=== PATIENT | male | born 1935 | race Caucasian/White ===

== ENCOUNTER 2016-09-20 17:39 | Emergency (ER) | payer BC ==
--- NOTE | 2016-09-20 18:35 | Emergency Department Record ---
History of Present Illness - General Chief complaint: Rash Stated complaint: RASH/ALLERGIC REACTION Time Seen by Provider: 09/20/16 18:13 Source: Patient Mode of Arrival: Ambulatory Limitations: No limitations - History of Present Illness Initial comments: The patient is here due to a pruritic rash for the last 2 weeks. He was in the [facility] about 10 days ago and was started on oral Prednisone and also did see his PCP yesterday and given more Prednisone. His PCP feels it was due to an allergy from his HTN medicine Clonidine which he started 2 months ago. Now due to the itching being no better he decided to come to the ER. He denies any CP, SOB, MATEUSZ or SOSA. The patient did stop the Clonodine and did have Hydralazine started. MD complaint: Rash Onset/Timin -: Week(s) Hx Tetanus Toxoid Vaccination: Yes Year of Tetanus Vaccination: unknown Location: Generalized Severity: Moderate Improves with: None Worsens with: None Context: None Associated symptoms: Itching Treatments Prior to Arrival: Benadryl, Corticosteroid, OTC topical medication - Related Data Home Medications Medication Instructions Recorded Confirmed Last Taken Carbamazepine 100 mg PO BID 02/17/14 09/20/16 09/20/16 Levothyroxine Sodium [Levoxyl] 112 mcg PO DAILY 02/17/14 09/20/16 09/20/16 Memantine HCl [Namenda] 10 mg PO DAILY 02/17/14 09/20/16 09/20/16 Pravastatin Sodium [Pravachol] 40 mg PO QHS 02/17/14 09/20/16 09/20/16 Nifedipine [Nifedipine ER] 90 mg PO QHS 09/11/14 09/20/16 09/20/16 Hydralazine HCl [Apresoline] 10 mg PO BID 09/20/16 09/20/16 09/20/16 Zolpidem Tartrate [Zolpidem 5 mg PO QHS PRN 09/20/16 09/20/16 09/19/16 Tartrate] Previous Rx's Medication Instructions Recorded Hydroxyzine HCl [Atarax] 25 mg PO TID #21 tablet 09/20/16 Allergies Allergy/AdvReac Type Severity Reaction Status Date / Time latex [LATEX] Allergy Unknown RASH Verified 09/20/16 17:45 Penicillins [PENICILLINS] Allergy Unknown HIVES Verified 09/20/16 17:45 adhesive Allergy HIVES Verified 09/20/16 17:45 gemfibrozil [From LOPID] AdvReac Unknown VOMITING Verified 09/20/16 17:45 hydrocodone bitartrate AdvReac Unknown VOMITING Verified 09/20/16 17:45 [From VICODIN] Travel Screening - Travel/Exposure Within Last 30 Days Have you traveled within the last 30 days?: No - Travel/Exposure Within Last Year Have you traveled outside the [place] in the last year?: No - Additonal Travel Details Have you been exposed to anyone with a communicable illness?: No - Travel Symptoms Symptom Screening: None Review of Systems Constitutional: Denies: Chills, Fever Eyes: Denies: Eye discharge ENT: Denies: Congestion Respiratory: Denies: Cough, Dyspnea Past Medical History - SOCIAL HISTORY Smoking Status: Former smoker Alcohol Use: None Drug Use: None - RESPIRATORY Hx Respiratory Disorders: Yes Hx Bronchitis: Yes Hx Pneumonia: Yes Hx Sleep Apnea: Yes Hx of CPAP: No (can't tolerate) - CARDIOVASCULAR Hx Cardio Disorders: Yes Hx Abnormal EKG: Yes Hx Chest Pain: Yes Hx Hypertension: Yes Comment:: Heart murmur - NEURO Hx Neuro Disorders: Yes Hx Dementia: Yes Hx Neuropathy: Yes (legs) Hx TIA: Yes - GI Hx GI Disorders: Yes Hx Abdominal Pain: Yes (epigastric pain) Hx Reflux: Yes Hx Ulcer: Yes - Hx Genitourinary Disorders: No - ENDOCRINE Hx Endocrine Disorders: Yes Hx Diabetes: No Hx Thyroid Disease: Yes (low) - MUSCULOSKELETAL Hx Musculoskeletal Disorders: Yes Hx Arthritis: Yes Hx Gout: No - PSYCH Hx Psych Problems: Yes Hx Anxiety: Yes Hx Depression: Yes Comment:: "memory problems" - HEMATOLOGY/ONCOLOGY Hx Hematology/Oncology Disorders: No Comment:: Catholic Family Medical History Any Significant Family History?: Yes Hx Dementia: Mother Hx Heart Disease: Father Hx HTN: Father, Mother Physical Exam - General General Appearance: Alert, Cooperative, No acute distress - Head Head exam: Atraumatic, Normocephalic, Normal inspection - Eye Eye exam: Normal appearance, PERRL - ENT Throat exam: Normal inspection. negative: Tonsillar erythema, Tonsillar exudate - Neck Neck exam: Normal inspection, Full ROM. negative: Tenderness - Respiratory Respiratory exam: Normal lung sounds bilaterally. negative: Respiratory distress - GI/Abdominal GI/Abdominal exam: Soft, Normal bowel sounds. negative: Tenderness - Neurological Neurological exam: Alert. negative: Motor sensory deficit - Psychiatric Psychiatric exam: negative: Anxious, Depressed - Skin Skin exam: Rash (There is a diffuse blanching macular papular erythematous rash to the trunk, arms and legs. It does appear to be a drug rash.) Course Vital Signs 09/20/16 17:57 Temperature 97.6 F Pulse Rate 60 Respiratory 16 Rate Blood Pressure 189/118 Pulse Ox 97 - Reevaluation(s) Reevaluation #1: The patient is resting comfortably with no new complaints. His BP is improved and he does feel comfortable going home. 09/20/16 20:20 Disposition Disposition: Discharge Clinical Impression: Allergic reaction caused by a drug Qualifiers: Encounter type: initial encounter Qualified Code(s): T78.40XA - Allergy, unspecified, initial encounter Disposition: Home, Self-Care Condition: (1) Good Instructions: Acute Rash (ED) Additional Instructions: Please continue the Prednisone and start the Atarax for the itching. Please see your PCP later this week or early next week for recheck. Return to the ER for any problems. Prescriptions: Hydroxyzine HCl [Atarax] 25 mg PO TID #21 tablet Forms: Patient Portal Access Time of Disposition: 20:19
[2016-09-20] MEDS ORDERED: DIPHENHYDRAMINE HCL IV 50 MG/ML VIAL IM ONE (18:41)
[2016-09-20] MEDS ORDERED: METHYLPREDNISOLONE SOD 40MG/VIAL IM ONE (19:50)
[2016-09-20] MEDS ORDERED: METHYLPREDNISOLONE PF 125MG/VIAL IM ONE (19:55)
== END 2016-09-20 20:27 | disposition home or self-care (01) ==
LOC: ER 17:39
DX: L27.1 Localized skin eruption due to drugs and medicaments taken internally (principal); T46.5X5A Adverse effect of other antihypertensive drugs, initial encounter; I10 Essential (primary) hypertension; Z87.891 Personal history of nicotine dependence
CPT/HCPCS: 96372; 99283; J1200; J2930

== ENCOUNTER 2016-11-01 07:07 | Emergency (ER) | payer BC ==
--- NOTE | 2016-11-01 07:36 | Emergency Department Record ---
History of Present Illness - General Chief Complaint: Confusion Stated Complaint: CONFUSED Time Seen by Provider: 11/01/16 07:27 Source: Patient, RN notes reviewed Mode of Arrival: Ambulatory - History of Present Illness Initial Comments: Patient wake up and pacing and speech was more confused and not able to talk in full sentences and having a hard time initiating conversation. Patient has dementia for about 5 years and this is a big change from his baseline. This morning had shaking and sweating and No URI symptoms and No vomiting or diarrhea .No chest pain or difficulty breathing. No dysuria. Recently had a rash and some medication stopped tere hess tylenol provastatin stopped 6 days ago to see if his rash would go away. Rash started 4 months ago. 5 courses of prednisone last course 10 days ago when it finished. Dr. Bronson Robledo saw him sunday 6 days ago. Family DrSabine is Dr. Crane in [place]. [facility]. is not sure when this stated and when she wake up he was like this pacing the floor. MD Complaint: Confusion Onset/Timin -: Hour(s) Severity: Mild Consistency: Constant - Jacquelyn Coma Scale Eye Response: (4) Open spontaneously Motor Response: (6) Obeys commands Verbal Response: (4) Confused conversation Jacquelyn Total: 14 - Related Data Home Medications Medication Instructions Recorded Confirmed Last Taken Carbamazepine 100 mg PO BID 02/17/14 11/01/16 10/31/16 Levothyroxine Sodium [Levoxyl] 112 mcg PO DAILY 02/17/14 11/01/16 10/31/16 Nifedipine [Nifedipine ER] 90 mg PO QHS 09/11/14 11/01/16 10/31/16 Hydralazine HCl [Apresoline] 10 mg PO BID 09/20/16 11/01/16 10/31/16 Previous Rx's Medication Instructions Recorded Hydroxyzine HCl [Atarax] 25 mg PO TID #21 tablet 09/20/16 Allergies Allergy/AdvReac Type Severity Reaction Status Date / Time latex [LATEX] Allergy Unknown RASH Unverified 09/26/16 11:22 Penicillins [PENICILLINS] Allergy Unknown HIVES Unverified 09/26/16 11:22 adhesive Allergy HIVES Unverified 09/26/16 11:22 gemfibrozil [From LOPID] AdvReac Unknown VOMITING Unverified 09/26/16 11:22 hydrocodone bitartrate AdvReac Unknown VOMITING Unverified 09/26/16 11:22 [From VICODIN] clonidine AdvReac rash Unverified 09/26/16 11:22 Travel Screening - Travel/Exposure Within Last 30 Days Have you traveled within the last 30 days?: No - Travel/Exposure Within Last Year Have you traveled outside the [place] in the last year?: No - Additonal Travel Details Have you been exposed to anyone with a communicable illness?: No - Travel Symptoms Symptom Screening: None Review of Systems Reviewed: No additional complaints except as noted below Constitutional: Reports: As per HPI, Chills. Denies: Fever, Malaise, Night sweats, Weakness, Weight change Eyes: Reports: As per HPI. Denies: Eye discharge, Eye pain, Photophobia, Vision change ENT: Reports: As per HPI. Denies: Congestion, Dental pain, Ear pain, Epistaxis , Hearing loss, Throat pain Respiratory: Reports: As per HPI. Denies: Cough, Dyspnea, Hemoptysis, Stridor, Wheezes Cardiovascular: Reports: As per HPI. Denies: Arrhythmia, Chest pain, Dyspnea on exertion, Edema, Murmurs, Orthopnea, Palpitations, Paroxysmal nocturnal dyspnea, Rheumatic Fever, Syncope Endocrine: Reports: As per HPI. Denies: Fatigue, Heat or cold intolerance, Polydipsia, Polyuria Gastrointestinal: Reports: As per HPI. Denies: Abdominal pain, Constipation, Diarrhea, Hematemesis, Hematochezia, Melena, Nausea, Vomiting Genitourinary: Reports: As per HPI. Denies: Dysuria, Frequency, Hematuria, Incontinence, Retention, Testicular pain, Testicular mass, Urgency Musculoskeletal: Reports: As per HPI. Denies: Arthralgia, Back pain, Gout, Joint swelling, Myalgia, Neck pain Skin: Reports: As per HPI. Denies: Bruising, Change in color, Change in hair/ nails, Lesions, Pruritus, Rash Neurological: Reports: As per HPI, Confusion. Denies: Abnormal gait, Headache, Numbness, Paresthesias, Seizure, Tingling, Tremors, Vertigo, Weakness Psychiatric: Reports: As per HPI. Denies: Anxiety, Auditory hallucinations, Depression, Homicidal thoughts, Suicidal thoughts, Visual hallucinations Hematological/Lymphatic: Reports: As per HPI. Denies: Anemia, Blood Clots, Easy bleeding, Easy bruising, Swollen glands Past Medical History - SOCIAL HISTORY Smoking Status: Former smoker Alcohol Use: None Drug Use: None - RESPIRATORY Hx Respiratory Disorders: Yes Hx Bronchitis: Yes Hx Pneumonia: Yes Hx Sleep Apnea: Yes Hx of CPAP: No (can't tolerate) - CARDIOVASCULAR Hx Cardio Disorders: Yes Hx Abnormal EKG: Yes Hx Chest Pain: Yes Hx Hypertension: Yes Comment:: Heart murmur - NEURO Hx Neuro Disorders: Yes Hx Dementia: Yes Hx Neuropathy: Yes (legs) Hx TIA: Yes - GI Hx GI Disorders: Yes Hx Abdominal Pain: Yes (epigastric pain) Hx Reflux: Yes Hx Ulcer: Yes - Hx Genitourinary Disorders: No - ENDOCRINE Hx Endocrine Disorders: Yes Hx Diabetes: No Hx Thyroid Disease: Yes (low) - MUSCULOSKELETAL Hx Musculoskeletal Disorders: Yes Hx Arthritis: Yes Hx Gout: No - PSYCH Hx Psych Problems: Yes Hx Anxiety: Yes Hx Depression: Yes Comment:: "memory problems" - HEMATOLOGY/ONCOLOGY Hx Hematology/Oncology Disorders: No Comment:: Oriental orthodox Family Medical History Any Significant Family History?: No Hx Dementia: Mother Hx Heart Disease: Father Hx HTN: Father, Mother Physical Exam - General General Appearance: Alert, Cooperative, No acute distress Limitations: Altered mental status (disoriented to time and place and worse today per with speeching but getting better in ED) - Head Head exam: Normal inspection - Eye Eye exam: Normal appearance, PERRL Pupils: Normal accommodation - ENT ENT exam: Normal exam, Mucous membranes moist, Normal external ear exam, Normal orophraynx, TM's normal bilaterally Ear exam: Normal external inspection. negative: External canal tenderness Nasal Exam: Normal inspection. negative: Discharge, Sinus tenderness Mouth exam: Normal external inspection, Tongue normal Teeth exam: Normal inspection. negative: Dental caries Throat exam: Normal inspection. negative: Tonsillar erythema, Tonsillar exudate - Neck Neck exam: Normal inspection, Full ROM, Other (carotid pulses equal bilaterally and no Bruits heard). negative: Lymphadenopathy, Tenderness - Respiratory Respiratory exam: Normal lung sounds bilaterally. negative: Respiratory distress - Cardiovascular Cardiovascular Exam: Regular rate, Normal rhythm, Normal heart sounds - GI/Abdominal GI/Abdominal exam: Soft, Normal bowel sounds. negative: Tenderness - Rectal Rectal exam: Deferred - exam: Deferred - Extremities Extremities exam: Normal inspection, Full ROM, Normal capillary refill. negative: Tenderness - Back Back exam: Reports: Normal inspection, Full ROM. Denies: Muscle spasm, Rash noted, Tenderness - Neurological Neurological exam: Alert, Altered, CN II-XII intact, Normal gait, Reflexes normal, Other (speech initially having a hard time getting his speech started and only short answers.) - Psychiatric Psychiatric exam: Normal affect, Normal mood - Skin Skin exam: Dry, Intact, Normal color, Warm Course speech improving in the ED - Reevaluation(s) Reevaluation #1: Talked about admission vs an out patient work up and said he would do better at home if possible. (because of his dementia) 11/01/16 09:44 Medical Decision Making - Data Complexity MDM Data: Labs Ordered and/or Reviewed (no acute changes), X-Ray Ordered and/or Reviewed (CT head neg), EKG Ordered and/or Reviewed (No acute changes) - Lab Data Result diagrams: 11/01/16 07:40 11/01/16 07:40 Disposition Clinical Impression: TIA (transient ischemic attack) Qualifiers: Transient cerebral ischemia type: unspecified Qualified Code(s): G45.9 - Transient cerebral ischemic attack, unspecified Dementia Qualifiers: Dementia type: Alzheimer's disease Alzheimer's disease onset: late-onset Dementia behavioral disturbance: without behavioral disturbance Qualified Code(s ): G30.1 - Alzheimer's disease with late onset Disposition: Home, Self-Care Condition: (2) Stable Instructions: Dementia (ED), Transient Ischemic Attack, [place] (GEN) Additional Instructions: follow up with Dr. Crane in one week start aspirin 81 mg per day drink more water about 6 glasses a day. return if worse Forms: Patient Portal Access Time of Disposition: 09:47
[2016-11-01] MEDS ORDERED: 0.9 % SODIUM CHLORIDE 1000ML 1,000 ML IV ONE (07:44)
[2016-11-01] MEDS ORDERED: 0.9 % SODIUM CHLORIDE 1000ML 1,000 ML IV PRN (07:45)
[2016-11-01 07:57] LABS: BASO % 0.8 % (0-6); EOS % 2.7 % (0-6); GRAN % 66.2 % (47-80); HEMATOCRIT 47.9 % (42.0-52.0); HEMOGLOBIN 16.1 gm/dl (14.0-18.0); LYMPH % 18.6 % (16-45); MEAN CELL VOLUME 93.9 fl (81-97); MEAN CORPUSCULAR HEMOGLOBIN 31.6 pg (27-33); MEAN CORPUSCULAR HGB CONC 33.6 g/dl (32-36); MEAN PLATELET VOLUME 10.6 fl (7.4-10.4); MONO % 11.7 % (0-9); PLATELET COUNT 298 K/uL (130-400); RED CELL DISTRIBUTION WIDTH 13.7 % (11.5-14.5); WHITE BLOOD COUNT W/O DIFF 10.4 K/uL (4.2-12.2)
[2016-11-01 08:22] LABS: AMMONIA < 8.7 umol/L (9-30); BLOOD UREA NITROGEN 20 mg/dL (9-20); CREATININE 1.3 mg/dL (0.66-1.25); EST GLOMERULAR FILTRATION RATE 56 ml/min; GLUCOSE,RANDOM 118 mg/dL (70-110); TOTAL PROTEIN 8.1 gm/dL (6.3-8.2)
[2016-11-01 08:23] LABS: ALBUMIN 4.7 gm/dL (3.5-5.0); ALKALINE PHOSPHATASE 135 U/L (38-126); ALT/SGPT 33 U/L (21-72); AST/SGOT 33 U/L (17-59); BILIRUBIN,DIRECT 0.3 mg/dL (0-0.3)
[2016-11-01 08:24] LABS: ACETAMINOPHEN < 10.0 ug/mL (10.0-30.0)
[2016-11-01 08:42] LABS: SALICYLATE < 1.0 mg/dL (2.8-20.0)
[2016-11-01 09:19] LABS: URINE APPEARANCE CLEAR; URINE BILIRUBIN NEGATIVE (NEGATIVE); URINE BLOOD NEGATIVE (NEGATIVE); URINE COLOR YELLOW; URINE GLUCOSE (UA) NEGATIVE (NEGATIVE); URINE KETONE NEGATIVE (NEGATIVE); URINE LEUKOCYTE ESTERASE NEGATIVE (NEGATIVE); URINE NITRITE NEGATIVE (NEGATIVE); URINE PROTEIN NEGATIVE (NEGATIVE); URINE UROBILINOGEN 0.2 E.U./dL (0.20 - 1.00)
[2016-11-01] MEDS ORDERED: ASPIRIN 81 MG CHEWABLE TABLET PO ONE (09:50)
--- NOTE | 2016-11-06 14:06 | RADIOLOGY REPORT ---
EXAM: CHEST, TWO VIEWS HISTORY: PATIENT IS CONFUSED AND UNABLE TO SPEAK CLEARLY TODAY. TECHNIQUE: Two views of the chest were provided along with the comparison study dated 06/24/14. FINDINGS: Cardiomegaly is noted. Tortuosity of the thoracic aorta is noted. The suzy appear unremarkable. There is no radiographic evidence of a focal infiltrate or pleural effusion. Chronic interstitial changes are identified bilaterally. Elevated right hemidiaphragm is unchanged with respect to the prior examination. No pneumothorax is noted. IMPRESSION: STABLE RADIOGRAPHIC APPEARANCE OF THE CHEST WITH RESPECT TO THE PRIOR EXAMINATION. JOB NUMBER: [id number] MTDD
--- NOTE | 2016-11-06 14:49 | CT SCAN REPORT ---
DATE: 11/01/2016. EXAM: CT SCAN OF THE HEAD. HISTORY: Confusion. The patient is unable to speak clearly. TECHNIQUE: Serial axial CT scan of the head was performed at 2.5 mm intervals from the base of the skull to the apex without the use of intravenous contrast. COMPARISON: CT scan of the head dated 05/17/2014 is provided. FINDINGS: Moderate generalized parenchymal volume loss is noted. No mass or mass effect is identified. Moderate periventricular and subcortical white matter chronic small-vessel ischemic changes are identified. 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 There is no CT evidence of intra- or extra- axial fluid collection to suggest bleeding. The bone windows demonstrate no CT evidence of a fracture or dislocation of the skull. The paranasal sinuses are unremarkable. IMPRESSION: STABLE CT APPEARANCE OF THE BRAIN WITH RESPECT TO PRIOR EXAMINATION. IF THERE IS FURTHER CLINICAL CONCERN THEN AN MRI OF THE BRAIN CAN BE OBTAINED FOR FURTHER EVALUATION. JOB NUMBER: [id number] MTDD
== END 2016-11-01 10:06 | disposition home or self-care (01) ==
LOC: ER 07:07
DX: G45.9 Transient cerebral ischemic attack, unspecified (principal); G30.1 Alzheimer's disease with late onset; F02.80 Dementia in other diseases classified elsewhere, unspecified severity, without behavioral disturbance, psychotic disturbance, mood disturbance, and anxiety; R82.99 Other abnormal findings in urine; I10 Essential (primary) hypertension; Z87.891 Personal history of nicotine dependence; Z86.73 Personal history of transient ischemic attack (TIA), and cerebral infarction without residual deficits; Z79.899 Other long term (current) drug therapy
CPT/HCPCS: 99284 ×2; 96360; 96361; 82140; 85025; 85730; 80076; 80048; 81003; 71020; 70450; 93005; 93010; G0480 ×3; 80320; 80329; J7030